=== PATIENT | male | born 1970 | race Caucasian/White ===

== ENCOUNTER 2016-03-01 20:07 | Emergency (ER) | payer MEDICAID ==
[2016-03-01] MEDS ORDERED: LORAZEPAM 2 MG/ML VIAL ONE (21:54)
[2016-03-01] MEDS ORDERED: KETOROLAC 30 MG/ML VIAL ONE (21:54)
== END 2016-03-02 00:27 | disposition home or self-care (01) ==
LOC: ER 20:07
DX: M94.0 Chondrocostal junction syndrome [Tietze] (principal); F41.1 Generalized anxiety disorder; F17.210 Nicotine dependence, cigarettes, uncomplicated
CPT/HCPCS: 36415; 71010; 80053; 82550; 83735; 84484; 85025; 85610; 85730; 93005; 96374; 96375

== ENCOUNTER 2016-03-03 10:42 | Inpatient (IN) | payer MEDICAID ==
[~2016-03-03] VITALS: Ht 165.1 cm; Wt 85.3 kg
[2016-03-03 15:19] VITALS: Ht 165.1 cm; Wt 85.3 kg
[2016-03-03 15:20] VITALS: BP_SYST 142; RESP 20; TEMP 96.8
[2016-03-03] MEDS ORDERED: DIPHENHYDRAMINE 50 MG/ML VIAL IM PRN (15:25)
[2016-03-03] MEDS ORDERED: ALU/MAG/SIM 30 ML UDC PO PRN (15:25)
[2016-03-03] MEDS ORDERED: MAG HYDROX 30 ML UDC PO PRN (15:25)
[2016-03-03] MEDS ORDERED: ACETAMINOPHEN 325 MG TAB PO PRN (15:25)
[2016-03-03] MEDS ORDERED: HALOPERIDOL 5 MG/ML VIAL IM PRN (15:25)
[2016-03-03] MEDS ORDERED: LORAZEPAM 2 MG TAB PO PRN (15:25)
[2016-03-03] MEDS ORDERED: DIPHENHYDRAMINE 50 MG CAP PO PRN (15:25)
[2016-03-03] MEDS ORDERED: LORAZEPAM 2 MG/ML VIAL IM PRN (15:25)
[2016-03-03] MEDS ORDERED: HALOPERIDOL 5 MG TAB PO PRN (15:25)
[2016-03-03] MEDS ORDERED: Flu Vaccine Quadrivalent 60 MCG/0.5 ML IM.VACC ONE ×2 (15:35)
[2016-03-03] MEDS: NICOTINE 21 MG/24 HR TRANSDERM SCH (15:50)
[2016-03-03 19:04] VITALS: BP_SYST 143; RESP 18; TEMP 98.4
[2016-03-03] MEDS: TRAZODONE 50 MG TAB PO PRN (22:18)
[2016-03-04 07:00] VITALS: BP_SYST 117; RESP 18; TEMP 97.5
[2016-03-04] MEDS: NICOTINE 21 MG/24 HR TRANSDERM SCH (09:31)
[2016-03-04] MEDS: FLUOXETINE 20 MG CAP PO SCH (11:13)
[2016-03-04 20:08] VITALS: BP_SYST 138; RESP 18; TEMP 98.5
[2016-03-04] MEDS: TRAZODONE 50 MG TAB PO PRN (21:26)
[2016-03-05 08:33] VITALS: BP_SYST 115; RESP 20; TEMP 98.8
[2016-03-05] MEDS: NICOTINE 21 MG/24 HR TRANSDERM SCH (08:50)
[2016-03-05] MEDS: FLUOXETINE 20 MG CAP PO SCH (08:50)
[2016-03-05 10:17] VITALS: BP_SYST 115; RESP 20; TEMP 98.8
[2016-03-05 11:04] VITALS: BP_SYST 115; RESP 20; TEMP 98.8
== END 2016-03-05 12:04 | disposition home or self-care (01) | DRG 885 ==
LOC: ENRESERVTM → ENRESERVDT → ER 10:42 → EMR 13:52 → PSY 14:39
PROVIDERS: ADMIT Psychiatry & Neurology Psychiatry; ATTEND Psychiatry & Neurology Psychiatry
DX: F33.2 Major depressive disorder, recurrent severe without psychotic features (principal); F15.10 Other stimulant abuse, uncomplicated; F12.10 Cannabis abuse, uncomplicated; J45.909 Unspecified asthma, uncomplicated
CPT/HCPCS: 36415; 80053; 80307; 80320; 80329; 81003; 84439; 84443; 85025; 85610